=== PATIENT | male | born 1990 | race Asian ===

== ENCOUNTER → 2021-01-18 | Outpatient (CLI) | payer OTHER | END | disposition home or self-care (01) | LOC: LAB 10:45 | PROVIDERS: ATTEND Internal Medicine Cardiovascular Disease | DX: E03.9 Hypothyroidism, unspecified (principal); M32.10 Systemic lupus erythematosus, organ or system involvement unspecified; R70.0 Elevated erythrocyte sedimentation rate; R79.82 Elevated C-reactive protein (CRP) | CPT/HCPCS: 36415; 84439; 84443; 85652; 86141; 86225; 86235 ==